=== PATIENT | female | born 1960 | race Native Hawaiian/Other Pacific Islander ===

== ENCOUNTER → 2017-12-18 13:18 | Outpatient (CLI) | payer OTHER, SELFPAY ==
--- NOTE | 2017-12-18 | DI.US.S_ITS ---
PROCEDURE: US RENAL COMPLETE INDICATIONS: KIDNEY STONES TECHNIQUE: Real-time scanning was performed of the kidneys and bladder, with image documentation. COMPARISON: [facility], CR, XR ABD AP 1VW, 09/20/2016, 12:15. [facility], CR, XR RETROGRADE UROGRAPHY, 08/04/2016, 16:30. FINDINGS: Kidneys: Kidneys are normal in size. Right kidney measures 10.2 cm long; left kidney measures 12.0 cm long. Right renal cortical thickness is 1.7 cm; left renal cortical thickness is 1. 7 cm. Renal cortical echotexture is normal. No hydronephrosis. 7 mm nonobstructing calcification involving the superior pole of the right kidney. Bladder: Pre-void bladder volume is 37 mL. Post-void residual is not evaluated. Pre-void images demonstrate no intraluminal masses or stones. On pre-void images, bilateral ureteral jets are noted with color Doppler interrogation. (Of note, ureteral jets may not be detectable in up to 25% of cases due to insufficient differences in specific gravity between ureteral and bladder urine). Miscellaneous: No free pelvic fluid. IMPRESSION: 7 mm right renal nonobstructing calcification on the superior pole. Dictated by: Victorino LEES Interpreted: Marion Kumar MD on 12/18/2017 at 14:00 Approved by: Marion Kumar M.D. on 12/18/2017 at 14:40
== END ==
PROVIDERS: Family Provider Family Medicine; PCP Family Medicine; Visit Provider Urology
DX: N20.0 Calculus of kidney (principal)
CPT/HCPCS: 76770

== ENCOUNTER → 2018-02-20 10:57 | Outpatient (CLI) | payer OTHER, SELFPAY ==
--- NOTE | 2018-02-20 | DI.MG.S_ITS ---
BILATERAL DIGITAL SCREENING MAMMOGRAM 3D/2D WITH CAD: 02/20/2018 CLINICAL: Routine screening. Family history of breast cancer. Comparison is made to exams dated: 10/07/2015 mammogram, 07/17/2014 mammogram, and 11/03/2009 mammogram - [facility]. The tissue of both breasts is heterogeneously dense. This may lower the sensitivity of mammography. Current study was also evaluated with a Computer Aided Detection (CAD) system. No significant masses, calcifications, or other findings are seen in either breast. There has been no significant interval change. IMPRESSION: NEGATIVE There is no mammographic evidence of malignancy. A 1 year screening mammogram is recommended.(02/21/2019) This exam was interpreted at Station ID: [id number]. NOTE: For mammograms, a report in lay terms will be sent to the patient. Approximately 15% of breast malignancies will not be visualized mammographically. In the management of a palpable breast mass, a negative mammogram must not discourage biopsy of a clinically suspicious lesion. Electronically Signed By: Brady reyes/tonie:02/20/2018 12:27:49 letter sent: Normal Exam ACR BI-RADS Category 1: Negative [id number]
== END ==
PROVIDERS: Family Provider Family Medicine; PCP Family Medicine; Visit Provider Family Medicine
DX: Z12.31 Encounter for screening mammogram for malignant neoplasm of breast (principal); Z80.3 Family history of malignant neoplasm of breast
CPT/HCPCS: 77063; 77067

== ENCOUNTER 2019-02-05 11:09 | Day surgery (SDC) | payer OTHER, SELFPAY ==
[2019-01-31 12:36] VITALS: BMI 37.0
[2019-02-05] VITALS (12 sets, daily range): BP systolic 109–167; BP diastolic 72–87; PULSE 57–70; RESP 15–17; TEMP 36.1–37.2; O2SAT 90–100; BMI 35.9
[2019-02-05] MEDS: LACTATED RINGERS 1,000 ML 100 ML IV (12:57)
--- NOTE | 2019-02-05 13:18 | PM.PREOP ---
Pre-operative Note Interval Note History & Physical reviewed/Exam performed by Physician: Yes Changes to H&P: No
[2019-02-05] MEDS: CLINDAMYCIN 900 MG/50 ML PIGGYBACK 50 MG IV (14:00)
--- NOTE | 2019-02-05 14:16 | SUR.OPER ---
Supine on padded OR bed, head on pillow, arms secured on padded arm boards at <90 degrees abduction, legs uncrossed, safety belt at thigh, tape over blanket over lower legs.
[2019-02-05] MEDS: BUPIVACAINE 0.25% (PF) VIAL 30 ML INJ (14:27)
[2019-02-05] MEDS: ONDANSETRON 4 MG/2 ML INJ IV (16:07)
[2019-02-05] MEDS: fentaNYL 100 MCG/2 ML INJ 50 MCG IV ×2 (16:08→16:13)
[2019-02-05] MEDS: HYDROMORPHONE 2 MG INJ 0.5 MG IV ×2 (16:15→16:20)
[2019-02-05] MEDS: SCOPOLAMINE 1 PATCH TOP (16:15)
[2019-02-05] MEDS: OXYCODONE/ACETAMINOPHEN 5/325 TABLET 1 TAB PO (16:56)
--- NOTE | 2019-02-05 19:30 | PM.OP.1 ---
Operative Date/Time/Diagnoses Date of procedure: 02/05/19 Time of procedure: 19:30 Pre-op diagnosis: Ventral hernia Post-op diagnosis: same Procedure & Clinicians Procedure: Laparoscopic ventral hernia repair with mesh Same procedure as scheduled: Yes Indications: 58-year-old woman with a history of laparoscopy wound who developed a symptomatic infraumbilical ventral hernia and presents for elective laparoscopic repair with mesh Surgeon: Chavez Bueno Click Yes if Unassisted: Yes Anesthesia Type: General Operative Notes Findings: Approximately 7 x 10 cm fascial defect infraumbilical Prosthetic devices, grafts, tissues, transplants, or devices: Mosaic 10 x 15 mesh Estimated Blood Loss (mL): 10 Procedure in detail: Patient was brought to the operating room placed supine on the table. Bilateral lower extremity compression devices were applied. General anesthesia was induced she was intubated with an endotracheal tube. She received 2 g of Ancef prior to skin incision. Time-out was performed ensure the correct patient procedure necessary equipment within the operating room. Again with a left upper quadrant 1 cm incision. The fascia was grasped and sharply incised and the abdomen was entered atraumatically. A 10 mm balloon trocar was then placed in the abdomen and pneumoperitoneum was established. The lap scope was inserted in the abdomen and demonstrated no evidence of injury upon entry. Then 2 5 mm working ports in the right upper and right lower quadrant. The fascial defect was evident in the infraumbilical midline. Adhesions to the midline were taken down using electrocautery. Once the fascial defect was fully exposed we selected a 10 x 15 cm Mosaic mesh. 0 Vicryl suture was placed in all 4 quadrants of the mesh and secured. The mesh was then inserted into the abdomen such that the smooth side of the mesh would be towards the bowel. The mesh was then fashioned over the fascial defect with at least a 2 cm fascial overlap and then the Vicryl suture was brought up to the abdominal wall using the Rolando White. The edges of the mesh were then circumferentially tacked to the abdominal wall using the Pro Tacker. The surgical field was checked for hemostasis. The ports were removed under direct visualization and abdomen desufflated. The fascia in the left upper quadrant was closed using 0 Vicryl suture in figure of 8 fashion. The skin incisions were irrigated and closed with 4 0 Monocryl sealed with Dermabond. Patient tolerated the operation well. The sponge and instrument count at the end the operation was correct. Patient emerged from anesthesia and was transferred to the postoperative care unit in stable condition. Complications: none Post-operative Condition: stable Disposition: same day surgery
== END 2019-02-05 18:00 | disposition home or self-care (01) ==
PROVIDERS: PCP Family Medicine; Visit Provider Surgery
PROC: 0WQF4ZZ Repair Abdominal Wall, Percutaneous Endoscopic Approach (ICD-10-PCS; CPT 49652; principal; 2019-02-05 12:45)
DX: K43.9 Ventral hernia without obstruction or gangrene (principal); F41.9 Anxiety disorder, unspecified; I10 Essential (primary) hypertension
CPT/HCPCS: 49652; C1781; J1100; J1170; J1885; J2250; J2405; J2704; J3010